=== PATIENT | female | born 1945 | race Caucasian/White ===

== ENCOUNTER 2018-10-19 21:43 | Emergency (ER) | payer OTHER ==
[2018-10-19 21:56] VITALS: BP 158/64; PULSE 67; TEMP 98; BMI 41.5
--- NOTE | 2018-10-19 22:58 | PDOC ---
*Physical Exam - Vital Signs Last Vital Signs Temp Pulse Resp BP Pulse Ox 98.0 F 67 18 158/64 98 10/19/18 21:50 10/19/18 21:50 10/19/18 21:50 10/19/18 21:50 10/19/18 21:50 Medical Decision Making - Medical Decision Making 10/19/18 22:58 Pt seen by Midlevel Provider under my direct supervision Pt interviewed and examined Ancillary studies reviewed I agree with plan as outlined by Midlevel Provider
--- NOTE | 2018-10-20 00:18 | PDOC ---
History of Present Illness - General Chief Complaint: Edema Stated Complaint: RT FOOT SWOLLEN Time Seen by Provider: 10/19/18 22:54 History Source: Patient, Family Exam Limitations: No Limitations - History of Present Illness Initial Comments: 10/20/18 00:10 Olamide Tinsley is a 73 yo female with a PMH of HTN presenting to the ED with right foot pain. On 10/04/18 she was being assisted out of a van by a bobcat driver/labor when she believes her foot was caught and hit when she got out. She inititally did not have pain when it happened but then felt the pain the next day which was an 8/10 and constant. On October 06 she and her son went on a plane to [place]. In y[place] she had an X-ray done which revealed a fractured right foot. She was given a cast but the son's who is a nurse removed the cast because it "was too tight" and "the cast was painful." In [place] she received acupuncture on the right foot which provided no relief. She also took aspirin, but it did not relieve the pain. The patient and her family flew back from [place] and arrived back [place] the [place] on 10[place]17/18 with Ms. Alvina Palacio sitting "in business class and comfortable" on the flight home with no cast on. Since she arrived home she has continued to have pain which is constant but worse at night. Her pain is currently an 8/10. ROS: She denies PUENTE, fevers, SOB, CP, abdominal pain, nausea, vomiting, diarrhea. Allergies- NKDA Meds- Irbesartan-HCTZ 150-12.5 mg daily, Meloxicam 7.5 mg daily, Vit D2 PMH- HTN, nephrolithiasis 7 years ago-lithotripsy Social Hx- nonsmoker, no alcohol, no illicit drugs Timing/Duration: constant Severity: severe Associated Symptoms: denies: chest pain, fever/chills, headaches, nausea/ vomiting, shortness of breath Aspirin Received prior to arrival: Yes: 81 mg x 1, provided at home Past History - Travel If so, where?: [place] - Past Medical History Allergies/Adverse Reactions: Allergies Allergy/AdvReac Type Severity Reaction Status Date / Time No Known Allergies Allergy Verified 10/19/18 21:56 Home Medications: Ambulatory Orders Meloxicam [Mobic (Nf) -] 15 mg PO DAILY 11/28/16 Valsartan 40 mg PO DAILY 11/28/16 COPD: No HTN: Yes - Suicide/Smoking/Psychosocial Hx Smoking History: Never smoked Have you smoked in the past 12 months: No Information on smoking cessation initiated: No Hx Alcohol Use: No Drug/Substance Use Hx: No Review of Systems - Review of Systems Able to Perform ROS?: Yes Comments:: 10/20/18 05:42 CONSTITUTIONAL: Absent: fever, chills, diaphoresis, generalized weakness, malaise, loss of appetite HEENT: Absent: rhinorrhea, nasal congestion, throat pain, throat swelling, difficulty swallowing, mouth swelling, ear pain, eye pain, visual Changes CARDIOVASCULAR: Absent: chest pain, loss of consciousness, palpitations, irregular heart rate, peripheral edema RESPIRATORY: Absent: cough, shortness of breath, dyspnea with exertion, orthopnea, wheezing, stridor, hemoptysis GASTROINTESTINAL: Absent: abdominal pain, abdominal distension, nausea, vomiting, diarrhea, constipation, melena, hematochezia GENITOURINARY: Absent: dysuria, frequency, urgency, hesitancy, hematuria, flank pain, genital pain SKIN: Absent: rash, itching, pallor NEUROLOGIC: Absent: headache, focal weakness or paresthesias, dizziness, unsteady gait, seizure, mental status changes, bladder or bowel incontinence PSYCHIATRIC: Absent: anxiety, depression, suicidal or homicidal ideation, hallucinations. Is the patient limited Greek proficient: No Constitutional: No: Fever Respiratory: No: Shortness of Breath Cardiac (ROS): Yes: Edema. No: Chest Pain Integumentary: Yes: Erythema Neurological: Yes: Numbness (numbness right ankle), Paresthesia (tingling right ankle). No: Headache *Physical Exam - Vital Signs Last Vital Signs Temp Pulse Resp BP Pulse Ox 98.0 F 67 18 158/64 98 10/19/18 21:50 10/19/18 21:50 10/19/18 21:50 10/19/18 21:50 10/19/18 21:50 - Physical Exam Comments: 10/20/18 05:43 GENERAL: Well developed, well nourished. Awake and alert. No acute distress. HEENT: Normocephalic, atraumatic. PERRLA, EOMI. No conjunctival pallor. Sclera are non- icteric. Moist mucous membranes. Oropharynx is clear. NECK: Supple. Full ROM. No JVD. Carotid pulses 2+ and symmetric, without bruits. No thyromegaly. No lymphadenopathy. CARDIOVASCULAR: Regular rate and rhythm. No murmurs, rubs, or gallops. Distal pulses are 2+ and symmetric. PULMONARY: No evidence of respiratory distress. Lungs clear to auscultation bilaterally. No wheezing, rales or rhonchi. ABDOMINAL: Soft. Non-tender. Non-distended. No rebound or guarding. No organomegaly. Normoactive bowel sounds. MUSCULOSKELETAL Normal range of motion at all joints. No bony deformities or tenderness. No CVA tenderness. General Appearance: Yes: Nourished, Appropriately Dressed HEENT: positive: EOMI Neck: positive: Supple. negative: Tender Respiratory/Chest: positive: Lungs Clear, Normal Breath Sounds Cardiovascular: positive: Regular Rhythm, Regular Rate, S1, S2 Vascular Pulses: Dorsalis-Pedis (R): 2+, Doralis-Pedis (L): 2+ Extremity: positive: Pedal Edema, Swelling Integumentary: positive: Swelling Neurologic: positive: Alert, Normal Mood/Affect Moderate Sedation - Procedure Monitoring Vital Signs: Procedure Monitoring Vital Signs Temperature 98.0 F 10/19/18 21:50 Pulse Rate 67 10/19/18 21:50 Respiratory Rate 18 10/19/18 21:50 Blood Pressure 158/64 10/19/18 21:50 O2 Sat by Pulse Oximetry (%) 98 10/19/18 21:50 ED Treatment Course - RADIOLOGY Radiology Studies Ordered: Category Date Time Status ANKLE-RIGHT [RAD] Stat Radiology 10/20/18 00:02 Ordered FOOT-RIGHT [RAD] Stat Radiology 10/19/18 23:15 Ordered DUPLEX VASCUL US-2LEGS [US] Stat Ultrasound 10/20/18 00:02 Ordered Radiograph Interpretation: 10/20/18 02:01 Duplex; b/lle: neg DVT xray right foot/ankle distal non displaced closed fibular fx *DC/Admit/Observation/Transfer Diagnosis at time of Disposition: Closed right fibular fracture Qualifiers: Encounter type: initial encounter Fibula location: distal Fracture morphology: unspecified fracture morphology Qualified Code(s): S82.831A - Other fracture of upper and lower end of right fibula, initial encounter for closed fracture - Discharge Dispostion Disposition: HOME Condition at time of disposition: Stable Decision to Admit order: No - Referrals Referrals: Moreno Ramon DO [Staff Physician] - - Patient Instructions Printed Discharge Instructions: DI for Ankle Fracture Additional Instructions: Ice; 20 mins on alternating with 20 mins off for 48 hours while awake. Rest Elevate Follow up with your orthopedic surgeon or the one listed on the discharge form. Return to the ER for severe/persistent/worsening symptoms, extremity numbness/ tingling sensation. Your right ankle is broken, you must follow up with an orthopedic surgeon this week - Post Discharge Activity Forms/Work/School Notes: Back to Work Progress Note - Progress Note Progress Note: right ankle sugar tong ortho glass splint pt using her crutches/ refuses crutches
== END 2018-10-20 04:38 | disposition home or self-care (01) ==
LOC: JER 21:43 → JERFT 21:43 → JER 10-20 04:38
DX: S82.831A Other fracture of upper and lower end of right fibula, initial encounter for closed fracture (principal); V58.4XXA Person boarding or alighting a pick-up truck or van injured in noncollision transport accident, initial encounter; Y92.488 Other paved roadways as the place of occurrence of the external cause; Y93.89 Activity, other specified; Y99.8 Other external cause status; I10 Essential (primary) hypertension; Z87.442 Personal history of urinary calculi
CPT/HCPCS: 73610-TC-RT-FY; 73630-TC-RT-FY; 93970-TC; 99281-25

== ENCOUNTER 2021-07-26 15:07 | Emergency (ER) | payer OTHER ==
[2021-07-26 15:16] VITALS: TEMP 97.9; BMI 29.7
[2021-07-26 20:21] LABS: BASO % 1.1 % (0-2.0); EOS % 0.8 % (0-4.5); HEMATOCRIT 31.6 % (32.4-45.2); HEMOGLOBIN 10.2 GM/dL (10.7-15.3); LYMPH % 32.1 % (8-40); MCH 25.1 pg (25.7-33.7); MCHC 32.3 g/dl (32.0-36.0); MEAN CELL VOLUME 77.8 fl (80-96); MEAN PLT VOLUME 7.8 fl (7.5-11.1); MONO % 5.7 % (3.8-10.2); NEUT % 60.3 % (42.8-82.8); PLATELET COUNT 226 10^3/uL (134-434); RBC 4.07 M/mm3 (3.60-5.2); RDW 15.5 % (11.6-15.6); WHITE BLOOD COUNT 6.8 K/mm3 (4.0-10.0)
[2021-07-26 20:52] LABS: CALCIUM 8.9 mg/dL (8.5-10.1)
[2021-07-26 20:53] LABS: BLOOD UREA NITROGEN 19.2 mg/dL (7-18)
[2021-07-26 20:56] LABS: CREATININE 0.9 mg/dL (0.55-1.3)
[2021-07-26 20:57] LABS: BILIRUBIN,TOTAL 0.4 mg/dL (0.2-1); TOT PROT 6.6 g/dl (6.4-8.2)
[2021-07-26 21:22] LABS: EPI CELLS 26 /uL (0-25.1); HYALINE CASTS 4 /uL (0-3.1); URINE APPEARANCE CLEAR; URINE BACTERIA 35 /uL (0-1359); URINE BILIRUBIN NEGATIVE (NEGATIVE); URINE COLOR YELLOW; URINE GLUCOSE (UA) NEGATIVE (NEGATIVE); URINE KETONE NEGATIVE (NEGATIVE); URINE LEUK ESTERASE 2+ (NEGATIVE); URINE NITRITE NEGATIVE (NEGATIVE); URINE PROTEIN NEGATIVE (NEGATIVE); URINE RBC 14 /uL (0-23.9); URINE UROBILINOGEN 0.2 mg/dL (0.2-1.0); URINE WBC 298 /uL (0-25.8)
[2021-07-26 22:24] VITALS: BP 137/86; PULSE 86
== END 2021-07-26 22:23 | disposition home or self-care (01) ==
LOC: JER 15:07
DX: R10.9 Unspecified abdominal pain (principal); N30.00 Acute cystitis without hematuria
CPT/HCPCS: 36415; 74176-TC; 80053; 81003; 85025; 87086; 87186; 99285-25

== ENCOUNTER 2021-08-23 20:29 | Emergency (ER) | payer OTHER ==
[2021-08-23 21:04] VITALS: BP 166/87; PULSE 60; TEMP 98.7; BMI 30.2
[2021-08-24 00:39] LABS: HEMATOCRIT 33.6 % (32.4-45.2); HEMOGLOBIN 10.6 GM/dL (10.7-15.3); MCH 24.5 pg (25.7-33.7); MCHC 31.5 g/dl (32.0-36.0); MEAN CELL VOLUME 77.6 fl (80-96); MEAN PLT VOLUME 8.2 fl (7.5-11.1); PLATELET COUNT 217 10^3/uL (134-434); RBC 4.33 M/mm3 (3.60-5.2); RDW 15.4 % (11.6-15.6); WHITE BLOOD COUNT 7.3 K/mm3 (4.0-10.0)
[2021-08-24 01:05] LABS: CHLORIDE 106 mmol/L (98-107); SODIUM 138 mmol/L (136-145)
[2021-08-24 01:07] LABS: CALCIUM 8.5 mg/dL (8.5-10.1)
[2021-08-24 01:08] LABS: ALBUMIN 3.3 g/dl (3.4-5.0); ANION GAP 7 MMOL/L (8-16); CO2 26 mmol/L (21-32); GLUCOSE,RANDOM 91 mg/dL (74-106); LIPASE 324 U/L (73-393)
[2021-08-24 01:11] LABS: CREATININE 0.9 mg/dL (0.55-1.3); SGOT/AST 18 U/L (15-37); SGPT/ALT 18 U/L (13-61)
[2021-08-24 01:12] LABS: BILIRUBIN,TOTAL 0.3 mg/dL (0.2-1)
[2021-08-24 01:13] LABS: TOT PROT 7.2 g/dl (6.4-8.2)
[2021-08-24 01:14] LABS: ALK PHOS 91 U/L (45-117)
[2021-08-24 02:08] LABS: EPI CELLS 9 /uL (0-25.1); HYALINE CASTS 0 /uL (0-3.1); URINE APPEARANCE CLEAR; URINE BACTERIA 20 /uL (0-1359); URINE BILIRUBIN NEGATIVE (NEGATIVE); URINE COLOR YELLOW; URINE GLUCOSE (UA) NEGATIVE (NEGATIVE); URINE KETONE NEGATIVE (NEGATIVE); URINE LEUK ESTERASE 2+ (NEGATIVE); URINE NITRITE NEGATIVE (NEGATIVE); URINE PROTEIN NEGATIVE (NEGATIVE); URINE RBC 21 /uL (0-23.9); URINE UROBILINOGEN 0.2 mg/dL (0.2-1.0); URINE WBC 85 /uL (0-25.8)
== END 2021-08-24 06:15 | disposition home or self-care (01) ==
LOC: JER 20:29
DX: N39.0 Urinary tract infection, site not specified (principal); R10.9 Unspecified abdominal pain
CPT/HCPCS: 36415; 74176-TC; 80053; 81003; 82550; 83690; 84484; 85027; 87086; 93005; 93010; 99285-25